=== PATIENT | male | born 1935 | race Caucasian/White ===

== ENCOUNTER 2016-08-25 11:32 | Observation (INO) | payer OTHER ==
[~2016-08-25] VITALS: Ht 188 cm; Wt 89.6 kg
[2016-08-25] VITALS (8 sets, daily range): BP systolic 135–195; BP diastolic 70–84; PULSE 60–69; RESP 16–19; TEMP 95.8–98.2; O2SAT 95–98
[~2016-08-25 11:32] MED LIST: ASPI81 PO; GLYB2.5T3 PO; MACR100C PO; MELO7.5; PERC5TAB12 PO; PRAV20 PO; TAB-TAB PO; TAMS0.4C67 PO
[2016-08-25] MEDS ORDERED: SODIUM CHLORIDE 0.9% FLUSH 10 ML FLUSH IVF PRN (11:45)
[2016-08-25] MEDS ORDERED: ASPI81CH CHEW (11:47)
[2016-08-25] MEDS ORDERED: VITATAB11 PO (11:47)
[2016-08-25] MEDS ORDERED: LOSA25TA PO (11:47)
[2016-08-25] MEDS ORDERED: METF750T PO (11:47)
[2016-08-25] MEDS ORDERED: PRAV20TA2 PO (11:47)
[2016-08-25] MEDS ORDERED: MULTTAB67 PO (11:47)
--- NOTE | 2016-08-25 11:47 | PD ---
HPI Chief Complaint: Chest Pain Time Seen by Provider: 11:37 Travel History International Travel<30 days: No Contact w/Intl Traveler<30days: No Traveled to known affect area: No History of Present Illness HPI This patient complains of pressure in his central sternal chest area. Duration is 2 days. Low-grade pressure rated 2 out of 10. He is currently not having any symptoms at this time. Comes are nonexertional. It can last for hours. He has history of bypass grafting in 2009 and denies any cardiac testing since. He saw his audio installer last 8 months ago. No alleviating factors. He took an aspirin this morning prior to arrival [facility] Past Medical History High Cholesterol: Yes Coronary Artery Disease: Yes Diabetes: Yes Past Surgical History Cardiac Surgery: Yes (QUAD BYPASS) Coronary Artery Bypass Graft: Yes Social History Alcohol Use: No Tobacco Use: No Substance Use: No Allergies-Medications (Allergen,Severity, Reaction): Coded Allergies: No Known Allergies (Verified , 08/25/16) Reported Meds & Prescriptions Reported Meds & Active Scripts Active Reported Metformin ER (Metformin HCl) 750 Mg Rosa M 750 Mg PO DAILY@1600 With evening meal Vitamin B Complex (B-Complex Vitamins) 1 Tab 1 Tab PO DAILY Multiple Vitamin 1 Tab 1 Tab PO DAILY Losartan (Losartan Potassium) 25 Mg Tab 10 Mg PO DAILY Pravastatin 20 Mg Tab 20 Mg PO DAILY Aspirin 81 Mg Chew 81 Mg CHEW M,W,F Review of Systems General / Constitutional: No: Fever Eyes: No: Visual changes HENT: No: Headaches Cardiovascular: Positive: Chest Pain or Discomfort Respiratory: No: Shortness of Breath Gastrointestinal: No: Abdominal Pain Genitourinary: No: Dysuria Musculoskeletal: No: Pain Skin: No Rash Neurologic: No: Weakness Psychiatric: No: Depression Endocrine: No: Polydipsia Hematologic/Lymphatic: No: Easy Bruising Physical Exam Narrative GENERAL: Well-nourished, well-developed patient in no apparent distress. SKIN: Focused skin assessment reveals no rash and nodules. Skin is Warm and dry. HEAD: Atraumatic. Normocephalic. EYES: Pupils equal and round. No scleral icterus. No injection or drainage. ENT: No nasal bleeding or discharge. Mucous membranes pink and moist. NECK: Trachea midline. No JVD. CARDIOVASCULAR: Regular rate and rhythm. No murmur appreciated. RESPIRATORY: No accessory muscle use. Clear to auscultation. Breath sounds equal bilaterally. GASTROINTESTINAL: Abdomen soft, non-tender, nondistended. Hepatic and splenic margins not palpable. MUSCULOSKELETAL: No obvious deformities. No clubbing. No cyanosis. No edema. NEUROLOGICAL: Awake and alert. No obvious cranial nerve deficits. Motor grossly within normal limits. Normal speech. PSYCHIATRIC: Appropriate mood and affect; insight and judgment normal. Data Data Last Documented VS Vital Signs Date Time Temp Pulse Resp B/P Pulse Ox O2 Delivery O2 Flow Rate FiO2 08/25/16 11:52 98.2 66 18 195/73 98 08/25/16 11:51 Room Air Orders Electrocardiogram (08/25/16 11:45) Basic Metabolic Panel (Bmp) (08/25/16 11:45) Ckmb (Isoenzyme) Profile (08/25/16 11:45) Complete Blood Count With Diff (08/25/16 11:45) Prothrombin Time / Inr (Pt) (08/25/16 11:45) Act Partial Throm Time (Ptt) (08/25/16 11:45) Troponin I (08/25/16 11:45) Chest, Single Ap (08/25/16 11:45) Ecg Monitoring (08/25/16 11:45) Iv Access Insert/Monitor (08/25/16 11:45) Oximetry (08/25/16 11:45) Sodium Chloride 0.9% Flush (Ns Flush) (08/25/16 11:45) CKMB (08/25/16 11:41) CKMB% (08/25/16 11:41) Labs Laboratory Tests Test 08/25/16 11:41 White Blood Count 5.8 TH/MM3 Red Blood Count 5.18 MIL/MM3 Hemoglobin 15.2 GM/DL Hematocrit 45.0 % Mean Corpuscular Volume 86.8 FL Mean Corpuscular Hemoglobin 29.3 PG Mean Corpuscular Hemoglobin 33.8 % Concent Red Cell Distribution Width 13.9 % Platelet Count 156 TH/MM3 Mean Platelet Volume 8.3 FL Neutrophils (%) (Auto) 68.8 % Lymphocytes (%) (Auto) 22.1 % Monocytes (%) (Auto) 7.5 % Eosinophils (%) (Auto) 1.0 % Basophils (%) (Auto) 0.6 % Neutrophils # (Auto) 4.0 TH/MM3 Lymphocytes # (Auto) 1.3 TH/MM3 Monocytes # (Auto) 0.4 TH/MM3 Eosinophils # (Auto) 0.1 TH/MM3 Basophils # (Auto) 0.0 TH/MM3 CBC Comment DIFF FINAL Differential Comment Prothrombin Time 11.0 SEC Prothromb Time International 1.0 RATIO Ratio Activated Partial 28.8 SEC Thromboplast Time Sodium Level 141 MEQ/L Potassium Level 4.0 MEQ/L Chloride Level 105 MEQ/L Carbon Dioxide Level 27.3 MEQ/L Anion Gap 9 MEQ/L Blood Urea Nitrogen 21 MG/DL Creatinine 1.30 MG/DL Estimat Glomerular Filtration 53 ML/MIN Rate Random Glucose 215 MG/DL Calcium Level 8.8 MG/DL Total Creatine Kinase 126 U/L Creatine Kinase MB 3.0 NG/ML Troponin I LESS THAN 0.02 NG/ML [facility] Medical Decision Making Medical Screen Exam Complete: Yes Emergency Medical Condition: Yes Medical Record Reviewed: Yes Differential Diagnosis Differential diagnosis includes IL, angina, pericarditis, pleurisy, GERD, anxiety. Narrative Course I have reviewed the patient's electronic medical record. Patient was last here in 2014 with kidney stone. IV placed I reviewed the EKG which shows sinus rhythm with occasional ectopic beat but no ST elevation I reviewed the chest x-ray shows sternal wires but otherwise looks normal Extended cardiac monitoring shows sinus rhythm with an occasional ectopic beat CBC is normal Metabolic profile is normal CK is normal Troponin is normal Coagulation studies are normal On recheck patient is still feeling well. But he is 81-year-old with known CAD having chest pressure on and off and will be a 23 hour observation in the chest pain center in order to rule out cardiac cause of his symptoms. I placed a call to the hospitalist to discuss Diagnosis Primary Impression: Chest pain in adult Admitting Information Admitting Physician Requests: Observation Valentin Munoz MD Aug 25, 2016 11:47
[2016-08-25 11:54] LABS: BASOPHIL % 0.6 % (0.0-2.0); EOSINOPHIL # 0.1 TH/MM3 (0-0.4); HEMO FLAGS DIFF FINAL; LYMPH % 22.1 % (9.0-44.0); LYMPHOCYTE # 1.3 TH/MM3 (1.0-4.8); MEAN CELL VOLUME 86.8 FL (80.0-100.0); MEAN CORPUSCULAR HEMOGLOBIN 29.3 PG (27.0-34.0); MEAN CORPUSCULAR HGB CONC 33.8 % (32.0-36.0); MONO % 7.5 % (0.0-8.0); NEUT % 68.8 % (16.0-70.0); PLATELET COUNT 156 TH/MM3 (150-450); RED BLOOD COUNT 5.18 MIL/MM3 (4.50-5.90); RED CELL DISTRIBUTION WIDTH 13.9 % (11.6-17.2); WHITE BLOOD COUNT 5.8 TH/MM3 (4.0-11.0)
[2016-08-25 12:03] LABS: CHLORIDE 105 MEQ/L (98-107); SODIUM (NA) 141 MEQ/L (136-145)
[2016-08-25 12:06] LABS: ANION GAP 9 MEQ/L (5-15); BICARBONATE 27.3 MEQ/L (21.0-32.0); BLOOD UREA NITROGEN 21 MG/DL (7-18)
[2016-08-25 12:07] LABS: APTT (PATIENT) 28.8 SEC (24.3-30.1)
[2016-08-25 12:09] LABS: GLOMERULAR FILTRATION RATE 53 ML/MIN (>89)
[2016-08-25 12:12] LABS: CREATINE KINASE 126 U/L (39-308)
--- NOTE | 2016-08-25 13:10 | RADRPT ---
EXAM DATE/TIME: 08/25/2016 11:59 [facility] COMPARISON: No previous studies available for comparison. INDICATIONS : Mid chest pain and pressure in patient with history of open heart. MEDICAL HISTORY : Cardiovascular disease. SURGICAL HISTORY : CABG. ENCOUNTER: Initial ACUITY: 1 day PAIN SCORE: 7/10 LOCATION: Bilateral mid chest FINDINGS: The patient is post median sternotomy. The heart is mildly enlarged. The lungs are clear. The visuali zed bony structures are grossly intact. CONCLUSION: 1. Post surgical changes. No acute abnormality. Castro Ty MD on August 25, 2016 at 13:07 Board Certified Radiologist. This report was verified electronically.
--- NOTE | 2016-08-25 13:24 | EKG ---
Date Performed: 08/25/2016 Time Performed: 11:36:58 PTAGE: 81 years EKG: Sinus rhythm WITH OCCASIONAL SUPRAVENTRICULAR PREMATURE COMPLEXES BORDERLINE ECG Compared to prior tracing no sig nificant change PREVIOUS TRACING : 04/26/2009 07.44 DOCTOR: Mark Pa Interpretating Date/Time 08/25/2016 13:21:18
[2016-08-25] MEDS: SODIUM CHLOR 0.9% 1000 ML INJ 1,000 ML IV SCH ×2 (13:55→23:19)
[2016-08-25] MEDS ORDERED: BISACODYL 10 MG SUPP RECTAL PRN (14:00)
[2016-08-25] MEDS ORDERED: ONDANSETRON HCL 4 MG/2 ML VIAL IVP PRN (14:00)
[2016-08-25] MEDS ORDERED: LACTULOSE SYRUP 20 GM/30 ML CUP PO PRN (14:00)
[2016-08-25] MEDS ORDERED: MAGNESIUM HYDROXIDE SUSP 30 ML CUP PO PRN (14:00)
[2016-08-25] MEDS ORDERED: SODIUM CHLORIDE 0.9% FLUSH 10 ML FLUSH IV FLUSH PRN (14:00)
[2016-08-25] MEDS ORDERED: SENNOSIDES 8.6 MG TAB PO PRN (14:00)
[2016-08-25] MEDS ORDERED: TEMAZEPAM 15 MG CAP PO PRN (14:00)
[2016-08-25] MEDS ORDERED: ENOXAPARIN SODIUM 40 MG/0.4 ML SYRINGE SQ SCH (15:00)
[2016-08-25] MEDS ORDERED: ACETAMINOPHEN 500 MG CPLT PO PRN (15:15)
[2016-08-25] MEDS ORDERED: MORPHINE SULFATE 4 MG/ML INJ IV PRN (15:15)
[2016-08-25] MEDS ORDERED: ACETAMINOPHEN/HYDROcodone 325 MG/7.5 MG TAB PO PRN (15:15)
[2016-08-25] MEDS ORDERED: NITROGLYCERIN 0.4 MG SL 25 TABS/BTL SL PRN (15:15)
[2016-08-25] MEDS ORDERED: GLUCAGON 1 MG/ML VIAL OTHER PRN (15:15)
[2016-08-25] MEDS ORDERED: DEXTROSE 50% IN WATER 50 ML VIAL(D50) IV PRN (15:15)
--- NOTE | 2016-08-25 15:16 | HHI.HP ---
HPI Service [facility] Primary Care Physician Unknown Admission Diagnosis chest pain Diagnoses: (1) Chest pain in adult Diagnosis: Principal (2) Accelerated hypertension Diagnosis: Principal (3) Hyperlipidemia Diagnosis: Secondary (4) Diabetes Diagnosis: Secondary (5) Chronic kidney disease, stage 3 Diagnosis: Secondary (6) Coronary artery disease Diagnosis: Secondary (7) History of coronary artery bypass surgery Diagnosis: Secondary Chief Complaint: Chest pain Travel History International Travel<30 Days: No Contact w/Intl Traveler <30 Da: No Traveled to Known Affected Are: No History of Present Illness Written by Valentin Daly, acting as scribe for Dr. Manuel on 08/25/16 at 15: 39. This note was transcribed by scribe Valentin FERNANDEZ. I, Dr. Zuri Manuel personally performed the history, physical exam, and medical decision making; and confirmed the accuracy of the information in the transcribed note. Authenticated by Dr. Zuri Manuel on 08/25/16 at 15:39. 81-year-old male with known history of hypertension, hyperlipidemia, diabetes, coronary disease status post CABG, history of atrial fibrillation status post ablation, history kidney stones who presented to the hospital because of chest pressure. Patient states that over the last 2 days he has been experiencing a constant with a crescendo type chest discomfort which he describes as a pressure, quantified as a 2/10 on a scale. He denies any nausea , vomiting, diaphoresis, lightheadedness, dizziness, shortness of breath, dyspnea, pain radiating into neck, back, shoulder, arm. Patient states that the discomfort is constant and does not worsen or improve with exertion or rest. Patient indicates when he underwent his evaluation 7 years ago he was developing dyspnea on exertion which cause him to undergo testing and subsequently bypass surgery. He is not feeling the symptoms at this time. His outreach worker is Dr. Galvan, she is out of town at this time. Patient was evaluated by emergency room physician and recommended chest pain center observation. Review of Systems Cardiovascular: COMPLAINS OF: Chest pain Except as stated in HPI: all other systems reviewed are Neg Past Family Social History Past Medical History Hypertension Hyperlipidemia coronary artery disease status post coronary bypass surgery History of atrial fibrillation status post ablation Diabetes History of kidney stone Past Surgical History Cardiac ablation for atrial fibrillation 4 vessel coronary bypass surgery Tonsillectomy Cystoscopy with stone extraction Reported Medications Reported Meds & Active Scripts Active Reported Metformin ER (Metformin HCl) 750 Mg Rosa M 750 Mg PO DAILY@1600 With evening meal Vitamin B Complex (B-Complex Vitamins) 1 Tab 1 Tab PO DAILY Multiple Vitamin 1 Tab 1 Tab PO DAILY Losartan (Losartan Potassium) 25 Mg Tab 10 Mg PO DAILY Pravastatin 20 Mg Tab 20 Mg PO DAILY Aspirin 81 Mg Chew 81 Mg CHEW M,W,F Allergies: Coded Allergies: No Known Allergies (Verified , 08/25/16) Family History Reviewed and unremarkable Social History Patient quit smoking in 1967, prior to that he smoked one pack a cigarettes a day for 3 years. Denies any alcohol or illicit drugs Physical Exam Vital Signs Vital Signs Date Time Temp Pulse Resp B/P Pulse Ox O2 Delivery O2 Flow Rate FiO2 08/25/16 14:48 95 21 08/25/16 13:11 60 16 135/70 96 Room Air 08/25/16 11:52 98.2 66 18 195/73 98 08/25/16 11:51 78 16 97 Room Air 08/25/16 11:48 98 08/25/16 11:45 69 16 160/78 96 Room Air Physical Exam GENERAL: Well-developed, well-nourished, in no acute distress. alert and orientated HEENT: Head is normocephalic without any lesions or masses noted. Facial features are symmetric. Eyes: Pupils equal round reactive to light. Extraocular muscles are intact. Conjunctivae were clear. Oropharyngeal: Pharynx without any erythema edema. Tongue is midline without deviation. Buccal mucosa is moist without any masses or lesions NECK: Supple without any masses. Trachea midline no deviation. No JVD, no bruits are appreciated CARDIAC: Regular rhythm, regular rate. S1/S2 are heard. No murmurs gallops or rubs. LUNGS: Clear to auscultation bilaterally. No wheeze, rhonchi or rales. No use of accessory muscles on inspiration or expiration. ABDOMEN: Soft, nontender. Nondistended. Bowel sounds heard in all 4 quadrants. No organomegaly or masses. Negative rebound, negative guarding EXTREMITIES: No edema, pulses are equal bilaterally. No cyanosis or clubbing NEUROLOGY: Mood and affect appear appropriate. Cranial nerves II through XII grossly intact. Muscle strength 5/5 in upper and lower extremities bilaterally. Deep tendon reflexes are 2+ in upper and lower extremities bilaterally. Laboratory Laboratory Tests Test 08/25/16 11:41 White Blood Count 5.8 Red Blood Count 5.18 Hemoglobin 15.2 Hematocrit 45.0 Mean Corpuscular Volume 86.8 Mean Corpuscular Hemoglobin 29.3 Mean Corpuscular Hemoglobin 33.8 Concent Red Cell Distribution Width 13.9 Platelet Count 156 Mean Platelet Volume 8.3 Neutrophils (%) (Auto) 68.8 Lymphocytes (%) (Auto) 22.1 Monocytes (%) (Auto) 7.5 Eosinophils (%) (Auto) 1.0 Basophils (%) (Auto) 0.6 Neutrophils # (Auto) 4.0 Lymphocytes # (Auto) 1.3 Monocytes # (Auto) 0.4 Eosinophils # (Auto) 0.1 Basophils # (Auto) 0.0 CBC Comment DIFF FINAL Differential Comment Prothrombin Time 11.0 Prothromb Time International 1.0 Ratio Activated Partial 28.8 Thromboplast Time Sodium Level 141 Potassium Level 4.0 Chloride Level 105 Carbon Dioxide Level 27.3 Anion Gap 9 Blood Urea Nitrogen 21 Creatinine 1.30 Estimat Glomerular Filtration 53 Rate Random Glucose 215 Calcium Level 8.8 Total Creatine Kinase 126 Creatine Kinase MB 3.0 Troponin I LESS THAN 0.02 Result Diagram: 08/25/16 1141 08/25/16 1141 Imaging Last Impressions Chest X-Ray 08/25/16 1145 Signed Impressions: Service Date/Time: Thursday, August 25, 2016 11:59 - CONCLUSION: 1. Post surgical changes. No acute abnormality. Castro Ty MD Assessment and Plan Assessment and Plan Chest pain Patient has increased risk factors to include hypertension, hyperlipidemia, diabetes, coronary artery disease, coronary bypass surgery, history tobacco use Continue to rule out acute coronary event with serial cardiac enzymes and serial EKGs We'll likely pursue nuclear stress test tomorrow if patient ruled out for acute coronary event Continue aspirin, nitroglycerin as needed, statin Start low-dose Coreg Accelerated hypertension Continue home medications Start low-dose Coreg Hyperlipidemia, Check fasting lipid panel Resume statin Diabetes Accu-Cheks with sliding scale insulin DVT prevention Lovenox Problem Qualifiers (1) Hyperlipidemia: Qualified Code: E78.4 - Other hyperlipidemia (2) Diabetes: Qualified Code: E11.8 - Type 2 diabetes mellitus with complication, without long-term current use of insulin Valentin Daly Aug 25, 2016 15:16 Zuri Manuel MD Aug 25, 2016 18:10
[2016-08-25] MEDS: INSULIN ASPART SUPPLEMENTAL SCALE SQ SCH ×2 (16:00→21:00)
[2016-08-25] MEDS: DOCUSATE SODIUM 50 MG/SENNA 8.6 MG TAB PO SCH (21:00)
[2016-08-25] MEDS: CARVEDILOL 3.125 MG TAB PO SCH (21:26)
[2016-08-25] MEDS: SODIUM CHLORIDE 0.9% FLUSH 10 ML FLUSH IV FLUSH SCH (21:27)
[2016-08-26] VITALS: BP 140/85; PULSE 61; RESP 18; TEMP 97.2; O2SAT 97
[2016-08-26 04:00] VITALS: BP 140/83; PULSE 65; RESP 18; TEMP 96.3; O2SAT 96
[2016-08-26] MEDS: INSULIN ASPART SUPPLEMENTAL SCALE SQ SCH ×2 (06:08→11:00)
[2016-08-26 06:26] LABS: AUTOMATED NEUTROPHIL # 3.3 TH/MM3 (1.8-7.7); BASOPHIL % 0.4 % (0.0-2.0); EOSINOPHIL # 0.1 TH/MM3 (0-0.4); EOSINOPHIL % 1.6 % (0.0-4.0); HEMATOCRIT 37.2 % (39.0-51.0); HEMO FLAGS DIFF FINAL; LYMPH % 24.7 % (9.0-44.0); LYMPHOCYTE # 1.3 TH/MM3 (1.0-4.8); MEAN CORPUSCULAR HEMOGLOBIN 29.9 PG (27.0-34.0); MEAN CORPUSCULAR HGB CONC 34.7 % (32.0-36.0); MONO % 9.2 % (0.0-8.0); NEUT % 64.1 % (16.0-70.0); PLATELET COUNT 111 TH/MM3 (150-450); RED BLOOD COUNT 4.33 MIL/MM3 (4.50-5.90); RED CELL DISTRIBUTION WIDTH 13.8 % (11.6-17.2); WHITE BLOOD COUNT 5.2 TH/MM3 (4.0-11.0)
[2016-08-26 06:35] LABS: POTASSIUM 4.1 MEQ/L (3.5-5.1)
[2016-08-26 06:40] LABS: BICARBONATE 27.4 MEQ/L (21.0-32.0)
[2016-08-26 07:38] VITALS: O2SAT 96
[2016-08-26 08:10] VITALS: BP 137/79; PULSE 71; RESP 19; TEMP 98.7; O2SAT 97
[2016-08-26] MEDS: CARVEDILOL 3.125 MG TAB PO SCH ×2 (08:34→08:45)
[2016-08-26] MEDS: DOCUSATE SODIUM 50 MG/SENNA 8.6 MG TAB PO SCH ×3 (08:34→08:48)
[2016-08-26] MEDS: SODIUM CHLORIDE 0.9% FLUSH 10 ML FLUSH IV FLUSH SCH (08:45)
[2016-08-26] MEDS: SODIUM CHLOR 0.9% 1000 ML INJ 1,000 ML IV SCH (08:49)
--- NOTE | 2016-08-26 08:56 | HHI.PR ---
Subjective Remarks No chest pain overnight or sob. No n/v/d/c. He is hungry. No cough. Denies lightheadedness or palpitations. Stress test negative Objective Vitals Vital Signs Date Time Temp Pulse Resp B/P Pulse Ox O2 Delivery O2 Flow Rate FiO2 08/26/16 08:10 98.7 71 19 137/79 97 08/26/16 07:38 96 08/26/16 04:00 96.3 65 18 140/83 96 08/26/16 00:00 97.2 61 18 140/85 97 08/25/16 20:10 61 08/25/16 20:00 95.8 60 18 152/82 96 08/25/16 20:00 97 21 08/25/16 16:58 96.4 63 19 150/84 96 08/25/16 14:48 95 21 08/25/16 13:11 60 16 135/70 96 Room Air 08/25/16 11:52 98.2 66 18 195/73 98 08/25/16 11:51 78 16 97 Room Air 08/25/16 11:48 98 08/25/16 11:45 69 16 160/78 96 Room Air I/O 08/25/16 08/25/16 08/25/16 08/26/16 08/26/16 08/26/16 07:00 15:00 23:00 07:00 15:00 23:00 Intake Total 1241 ml Output Total 850 ml Balance 391 ml Intake Oral 660 ml IV Total 581 ml Output Urine Total 850 ml # Bowel Movements 1 Result Diagram: 08/26/16 0550 08/26/16 0550 Imaging Last Impressions Chest X-Ray 08/25/16 1145 Signed Impressions: Service Date/Time: Thursday, August 25, 2016 11:59 - CONCLUSION: 1. Post surgical changes. No acute abnormality. Castro Ty MD Objective Remarks GENERAL: Well-developed, well-nourished, in no acute distress. alert and orientated CARDIAC: Regular rhythm, regular rate. S1/S2 are heard. No murmurs gallops or rubs. LUNGS: Clear to auscultation bilaterally. No wheeze, rhonchi or rales. No use of accessory muscles on inspiration or expiration. ABDOMEN: Soft, nontender. Nondistended. Bowel sounds heard in all 4 quadrants. No organomegaly or masses. Negative rebound, negative guarding EXTREMITIES: No edema, pulses are equal bilaterally. No cyanosis or clubbing NEUROLOGY: Mood and affect appear appropriate. Cranial nerves II through XII grossly intact. Muscle strength 5/5 in upper and lower extremities bilaterally. Deep tendon reflexes are 2+ in upper and lower extremities bilaterally. A/P Problem List: (1) Chest pain in adult ICD Code: R07.9 Status: Acute (2) Accelerated hypertension ICD Code: I10 Status: Acute (3) Hyperlipidemia ICD Code: E78.5 Status: Acute (4) Diabetes ICD Code: E11.9 Status: Acute (5) Chronic kidney disease, stage 3 ICD Code: N18.3 Status: Acute (6) Coronary artery disease ICD Code: I25.10 Status: Acute (7) History of coronary artery bypass surgery ICD Code: Z95.1 Status: Acute Assessment and Plan Chest pain Patient has increased risk factors to include hypertension, hyperlipidemia, diabetes, coronary artery disease, coronary bypass surgery, history tobacco use Continue to rule out acute coronary event with serial cardiac enzymes and serial EKGs S/p nuclear stress test reviewed and negative for ischemia, low risk Continue aspirin, nitroglycerin as needed, statin Continue low-dose Coreg to follow up as OP with PCP and [facility] cardiology Dr Galvan Accelerated hypertension. resolved. Continue home medications Continue low-dose Coreg Hyperlipidemia Check fasting lipid panel Resume statin Diabetes mellitus type 2 Accu-Cheks with sliding scale insulin DVT prevention Lovenox Discussed with the patient, nurse, at bedside. Discharge Planning DC home in stable condition. To follow up as OP with PCP and consultants. Diet: Healthy heart diet and diabetic diet. Activity ad raúl as tolerated Medications per med reconciliations Problem Qualifiers (1) Hyperlipidemia: Qualified Code: E78.4 - Other hyperlipidemia (2) Diabetes: Qualified Code: E11.8 - Type 2 diabetes mellitus with complication, without long-term current use of insulin Zuri Manuel MD Aug 26, 2016 08:56
[2016-08-26] MEDS ORDERED: REGADENOSON INJ 0.4 MG/5 ML SYR IV ONE (09:19)
--- NOTE | 2016-08-26 09:50 | EKG ---
Date Performed: 08/25/2016 Time Performed: 16:08:27 PTAGE: 81 years EKG: SINUS BRADYCARDIA BORDERLINE ECG Compared to prior tracing no significant change PREVIOUS TRACING : 08/25/2016 11.36 DOCTOR: Enrico Banks Interpretating Date/Time 08/26/2016 09:47:30
[2016-08-26 09:57] LABS: HDL CHOLESTEROL 34.1 MG/DL (40.0-60.0)
--- NOTE | 2016-08-26 10:22 | EKG ---
Date Performed: 08/25/2016 Time Performed: 19:12:27 PTAGE: 81 years EKG: Sinus rhythm WITH FREQUENT VENTRICULAR PREMATURE COMPLEXES NONSPECIFIC T-WAVE ABNORMALITY ABNORMAL RHYTHM ECG PREVIOUS TRACING : 08/25/2016 16.08 Ventricular trigeminy new from the prior tracing. DOCTOR: Enrico Banks Interpretating Date/Time 08/26/2016 10:20:22
--- NOTE | 2016-08-26 10:28 | RADRPT ---
EXAM DATE/TIME: 08/26/2016 09:07 [facility] COMPARISON: No previous studies available for comparison. INDICATIONS : Substernal chest pain. Angina. Coronary artery disease. DOSE: 25.4 mCi Tc99m Myoview at stress. 8.5 mCi Tc99m Myoview at rest. 0.4 mg Lexiscan STRESS SYMPTOMS: None noted. EJECTION FRACTION: 59% MEDICAL HISTORY : Hypertension. Diabetes mellitus type 2. Renal failure, chronic. SURGICAL HISTORY : Tonsillectomy. CABG Cardiac ablation. ENCOUNTER: Initial ACUITY: 2 days PAIN SCALE: 3/10 LOCATION: Substernal chest TECHNIQUE: The patient underwent pharmacologic stress with infusion of prescribed dose. Continuous ECG tracing was monitored during stress. Gated SPECT imaging was performed after stress and conventional SPECT i maging was performed at rest. The examination was performed on a SPECT/CT scanner, both attenuation and non-corrected datasets were reviewed. FINDINGS: DISTRIBUTION: The maximum perfused segment at stress is in the septal wall. PERFUSION STUDY: There is small area of mildly to moderately diminished relative perfusion involving inferior wall wit hout evidence of redistribution. GATED STUDY: There is intact wall motion and thickening without hypokinetic or dyskinetic segments. CONCLUSION: Small fixed inferior wall perfusion defect. No ischemia. RISK CATEGORY: Low (<1% Annual Mortality Rate) Kalpesh Turk MD on August 26, 2016 at 10:22 Board Certified Radiologist. This report was verified electronically.
[2016-08-26] MEDS ORDERED: CARV3.125 PO (11:27)
--- NOTE | 2016-08-26 11:27 | HHI.DCPOC ---
Discharge Care Plan Goals to Promote Your Health * To prevent worsening of your condition and complications * To maintain your health at the optimal level Directions to Meet Your Goals Take your medications as prescribed Follow your dietary instruction Follow activity as directed Keep your appointments as scheduled Take your immunizations and boosters as scheduled If your symptoms worsen call your PCP, if no PCP go to Urgent Care Center or Emergency Room Smoking is Dangerous to Your Health. Avoid second hand smoke Call the 24-hour hour crisis hotline for domestic abuse at Zuri Manuel MD Aug 26, 2016 11:27
--- NOTE | 2016-08-26 15:36 | TR ---
Date Performed: 08/26/2016 Time Performed: 09:38:27 DOCTOR: Mark Pa DRUG LIST: CLINICAL HISTORY: CHEST PAIN REASON FOR TEST: Chest pain REASON FOR ENDING: OBSERVATION: CONCLUSION: Lexiscan stress test was performed under standard four minute protocol. Radionuclide was injected one minute prior to ending the test. No electrocardiographic abormalities were present to suggest ischemia. Nuclear imaging and interpretation are pending. COMMENTS: PENDING SCAN REPORT
== END 2016-08-26 13:57 | disposition home or self-care (01) ==
LOC: PHED 11:32 → INTOOBSV 12:51 → UNDOADMIN 12:51 → PHEDA 12:51 → PH3A 13:39
PROVIDERS: ADMIT Hospitalist; ATTEND Hospitalist
DX: R07.9 Chest pain, unspecified (principal); E78.5 Hyperlipidemia, unspecified; I12.9 Hypertensive chronic kidney disease with stage 1 through stage 4 chronic kidney disease, or unspecified chronic kidney disease; E11.22 Type 2 diabetes mellitus with diabetic chronic kidney disease; N18.3 Chronic kidney disease, stage 3 (moderate); I25.10 Atherosclerotic heart disease of native coronary artery without angina pectoris; Z95.1 Presence of aortocoronary bypass graft; Z79.84 Long term (current) use of oral hypoglycemic drugs; I48.91 Unspecified atrial fibrillation; Z87.891 Personal history of nicotine dependence; Z79.899 Other long term (current) drug therapy; R94.31 Abnormal electrocardiogram [ECG] [EKG]
CPT/HCPCS: 71010; 78452; 80048; 80061; 82550; 82552; 82948; 84484; 85025; 85610; 85730; 93005; 93017; 97161; 99285; A9502; G0378; G8987; G8988; J2785; J7030